=== PATIENT | female | born 1960 | race Hispanic/Latino ===

== ENCOUNTER 2021-06-20 21:14 | Emergency (ER) | payer OTHER ==
[2021-06-20] MEDS ORDERED: ACETAMINOPHEN WITH CODEINE 1 TAB TAB PO ONE (23:30)
[2021-06-20] MEDS ORDERED: NAPR-1180 PO (23:36)
[2021-06-21 00:38] VITALS: BP 142/78
== END 2021-06-21 00:34 | disposition home or self-care (01) ==
LOC: EDH 21:14
DX: S92.355A Nondisplaced fracture of fifth metatarsal bone, left foot, initial encounter for closed fracture (principal); I10 Essential (primary) hypertension; E11.9 Type 2 diabetes mellitus without complications; X50.1XXA Overexertion from prolonged static or awkward postures, initial encounter; Z79.1 Long term (current) use of non-steroidal anti-inflammatories (NSAID); X58.XXXA Exposure to other specified factors, initial encounter; Y93.89 Activity, other specified; Y92.89 Other specified places as the place of occurrence of the external cause; Y99.8 Other external cause status
CPT/HCPCS: 73600; 73630

== ENCOUNTER 2024-03-08 17:53 | Emergency (ER) | payer BC ==
[~2024-03-08 17:53] MED LIST: NAPR-1180 PO
== END 2024-03-08 20:05 | disposition left against medical advice (07) ==
LOC: EDH 17:53
DX: R11.2 Nausea with vomiting, unspecified (principal); R19.7 Diarrhea, unspecified; Z53.21 Procedure and treatment not carried out due to patient leaving prior to being seen by health care provider